=== PATIENT | male | born 1985 | race Caucasian/White ===

== ENCOUNTER 2017-03-27 16:55 | Emergency (ER) | payer MEDICAID ==
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
== END 2017-03-27 18:00 | disposition home or self-care (01) ==
LOC: FB.ED 16:55
DX: Z76.0 Encounter for issue of repeat prescription (principal); I10 Essential (primary) hypertension; Z79.891 Long term (current) use of opiate analgesic; Z79.899 Other long term (current) drug therapy; Z88.5 Allergy status to narcotic agent; Z88.6 Allergy status to analgesic agent
CPT/HCPCS: 99282

== ENCOUNTER 2021-09-17 18:20 | Emergency (ER) | payer MEDICAID ==
[2021-09-17] MEDS ORDERED: Methadone 5 MG Tab PO STA (19:36)
== END 2021-09-17 20:00 | disposition home or self-care (01) ==
LOC: FB.ED 18:20
DX: F11.23 Opioid dependence with withdrawal (principal); I10 Essential (primary) hypertension; Z88.1 Allergy status to other antibiotic agents; Z91.048 Other nonmedicinal substance allergy status; Z88.5 Allergy status to narcotic agent; Z79.899 Other long term (current) drug therapy; Z86.16 Personal history of COVID-19
CPT/HCPCS: 99284; A9270; 99281

== ENCOUNTER 2021-09-18 16:10 | Emergency (ER) | payer MEDICAID ==
[2021-09-18] MEDS: Methadone 10 MG Tab PO STA (16:42)
== END 2021-09-18 16:55 | disposition home or self-care (01) ==
LOC: FB.ED 16:10
DX: F11.23 Opioid dependence with withdrawal (principal); I10 Essential (primary) hypertension; Z86.16 Personal history of COVID-19; Z79.899 Other long term (current) drug therapy; Z88.5 Allergy status to narcotic agent; Z88.1 Allergy status to other antibiotic agents
CPT/HCPCS: 99282; 99284; A9270-GY